=== PATIENT | female | born 1970 | race African-American/Black ===

== ENCOUNTER 2018-01-16 15:00 | Outpatient (CLI) | payer OTHER | END 2018-01-16 15:01 | disposition home or self-care (01) | LOC: BICMAMMO 15:00 | PROVIDERS: ATTEND Specialist | DX: Z12.31 Encounter for screening mammogram for malignant neoplasm of breast (principal); Z98.84 Bariatric surgery status | CPT/HCPCS: 77063; 77067 ==

== ENCOUNTER 2021-02-12 18:15 | Outpatient (CLI) | payer BC ==
[2021-02-13 01:50] LABS: SARS-CoV-2 PCR by NAA Not Detected (NotDetected)
== END 2021-02-12 18:16 | disposition home or self-care (01) ==
LOC: LABBT 18:15
PROVIDERS: ATTEND Family Medicine
DX: Z01.812 Encounter for preprocedural laboratory examination (principal); H35.342 Macular cyst, hole, or pseudohole, left eye; Z20.822 Contact with and (suspected) exposure to COVID-19
CPT/HCPCS: 87635; U0003; U0005

== ENCOUNTER 2021-02-17 09:21 | Day surgery (SDC) | payer BC ==
[2021-02-16 15:27] VITALS: BMI 28.6
[~2021-02-17 09:21] MED LIST: EPINEPHrine 0.3 MG in Ophthalmic Irrigation Solution 500 ML IRR SCH; Fentanyl 100 MCG/2 ML VIAL ONE; Midazolam HCl 2 mg/2 ml Vial ONE
[2021-02-17] MEDS ORDERED: Cyclopentolate 1% Ophth Drops 15 ML BOT ONE (10:24)
[2021-02-17] MEDS ORDERED: Phenylephrine 2.5% Ophth Soln 5 ML BOT ONE (10:25)
[2021-02-17] MEDS ORDERED: Midazolam HCl 2 mg/2 ml Vial ONE ×2 (10:57→12:08)
[2021-02-17] MEDS ORDERED: PROPOFOL 200 MG/20 ML VIAL ONE (11:30)
[2021-02-17] MEDS ORDERED: Maxitrol 0.1% Opth Oint 3.5 GM TUBE ONE (11:30)
[2021-02-17] MEDS ORDERED: Lidocaine 1% PF 5 ML VIAL ONE (11:30)
[2021-02-17] MEDS ORDERED: Triamcinolone 40 MG/ML VIAL ONE (11:30)
[2021-02-17] MEDS ORDERED: Lidocaine 4% PF 5 ML AMP ONE (11:30)
[2021-02-17] MEDS ORDERED: Indocyanine Green 25 MG/10 ML VIAL ONE (11:30)
[2021-02-17] MEDS ORDERED: Bupivacaine PF 0.75% SDV 10 ML ONE (11:30)
[2021-02-17] MEDS ORDERED: CEFAZOLIN 1 GM VIAL ONE (11:30)
== END 2021-02-17 13:11 | disposition home or self-care (01) ==
LOC: SDC 09:21
PROVIDERS: ATTEND Ophthalmology Retina Specialist
PROC: 08T53ZZ Resection of Left Vitreous, Percutaneous Approach (ICD-10-PCS; principal; 2021-02-17)
PROC: 08NF3ZZ Release Left Retina, Percutaneous Approach (ICD-10-PCS; principal; 2021-02-17)
DX: H35.342 Macular cyst, hole, or pseudohole, left eye (principal); Z79.899 Other long term (current) drug therapy
CPT/HCPCS: 67025; J0171; J0690; J2250; J2704; J3010; J3301; J3490

== ENCOUNTER 2021-04-28 06:25 | Day surgery (SDC) | payer BC ==
[2021-04-27 13:29] VITALS: BMI 28.6
[2021-04-28] MEDS ORDERED: EPINEPHrine 0.3 MG in Ophthalmic Irrigation Solution 500 ML IRR SCH (06:30)
[2021-04-28] MEDS ORDERED: Midazolam HCl 2 mg/2 ml Vial ONE (06:33)
[2021-04-28] MEDS ORDERED: Fentanyl 100 MCG/2 ML VIAL ONE (06:33)
[2021-04-28] MEDS ORDERED: Phenylephrine 2.5% Ophth Soln 5 ML BOT ONE (06:40)
[2021-04-28] MEDS ORDERED: Cyclopentolate 1% Opth Drop 2 ML BOT ONE (06:40)
[2021-04-28] MEDS ORDERED: Bupivacaine PF 0.75% SDV 10 ML ONE (08:05)
[2021-04-28] MEDS ORDERED: Lidocaine 4% PF 5 ML AMP ONE (08:05)
[2021-04-28] MEDS ORDERED: CEFAZOLIN 1 GM VIAL ONE (08:05)
[2021-04-28] MEDS ORDERED: Triamcinolone 40 MG/ML VIAL ONE (08:05)
[2021-04-28] MEDS ORDERED: Lidocaine 1% PF 5 ML VIAL ONE ×2 (08:05)
[2021-04-28] MEDS ORDERED: Maxitrol 0.1% Opth Oint 3.5 GM TUBE ONE (08:05)
[2021-04-28] MEDS ORDERED: PROPOFOL 200 MG/20 ML VIAL ONE (08:05)
[2021-04-28] MEDS ORDERED: Indocyanine Green 25 MG/10 ML VIAL ONE (08:05)
== END 2021-04-28 09:55 | disposition home or self-care (01) ==
LOC: SDC 06:25
PROVIDERS: ATTEND Ophthalmology Retina Specialist
PROC: 08NE3ZZ Release Right Retina, Percutaneous Approach (ICD-10-PCS; principal; 2021-04-28)
PROC: 08T43ZZ Resection of Right Vitreous, Percutaneous Approach (ICD-10-PCS; principal; 2021-04-28)
DX: H35.341 Macular cyst, hole, or pseudohole, right eye (principal)
CPT/HCPCS: 67025; J0171; J0690; J2250; J2704; J3010; J3301; J3490

== ENCOUNTER 2024-08-15 12:19 | Outpatient (CLI) | payer BC | END 2024-08-15 12:20 | disposition home or self-care (01) | LOC: SCSRAD 12:19 | PROVIDERS: ATTEND Family Medicine | DX: R05.9 Cough, unspecified (principal) | CPT/HCPCS: 71046 ==

== ENCOUNTER 2025-08-27 10:50 | Outpatient (CLI) | payer BC | END 2025-08-27 10:51 | disposition home or self-care (01) | LOC: SCSRAD 10:50 | PROVIDERS: ATTEND Family Medicine | DX: M25.561 Pain in right knee (principal) ==